=== PATIENT | male | born 1945 | race Caucasian/White ===

== ENCOUNTER 2019-01-10 09:23 | Outpatient (CLI) | payer MEDICARE, OTHER ==
[~2019-01-10] VITALS: Ht 185.4 cm; Wt 89.8 kg
[~2019-01-10 09:23] MED LIST: ACET325T53 PO; ALBU2.5V13 NEB; ALLA266C2 TP; CARV6.25 PO; Digoxin PO; LEVO750T21 PO; RIVA10TA PO; Simethicone PO
[2019-01-10] MEDS ORDERED: IOHEXOL-350 100 ML VIAL IV ONE (10:10)
[2019-01-10] MEDS ORDERED: IV NS 0.9% 250 ML IV ONE (10:10)
[2019-01-10] MEDS ORDERED: CT SWABBABLE VALVE TRANS SET 1 EA INFUS.SET MC ONE (10:10)
[2019-01-10] MEDS ORDERED: IV NS 0.9% 500 ML IV PRN (11:30)
[2019-01-10] MEDS ORDERED: NITROGLYCERIN 0.4 MG/TAB BOTTLE SL ONE (11:30)
[2019-01-10] MEDS ORDERED: METOPROLOL TARTRATE INJ 5 MG/5 ML AMPUL ONE ×3 (11:43→12:27)
[2019-01-10] MEDS: METOPROLOL TARTRATE INJ 5 MG/5 ML AMPUL IVP PRN ×8 (11:59→12:34)
[2019-01-10 13:10] VITALS: BP 130/65
--- NOTE | 2019-01-10 13:10 | NUR ---
received pt. from cat scanning.hep lock intact.skin warm and dry. no complaints offered.vs taken and stable.call [facility] within reach.refusing food.requests water. friend and transport at bedside.
--- NOTE | 2019-01-10 13:50 | NUR ---
just up to bathrm. to void.hep lock out.given dc instructions,friend at bedside.aware to follow up [facility] mule tender.taken to lobby via w/c accompanied by friend and director career services.
[2019-01-10 14:00] VITALS: BP 135/79
== END 2019-01-10 23:59 | disposition home or self-care (01) ==
LOC: CT 09:23
PROVIDERS: ATTEND Internal Medicine Interventional Cardiology
DX: I21.9 Acute myocardial infarction, unspecified (principal); J43.9 Emphysema, unspecified; I48.91 Unspecified atrial fibrillation; M47.814 Spondylosis without myelopathy or radiculopathy, thoracic region
CPT/HCPCS: 75574; J3490 ×3; J7050; Q9967

== ENCOUNTER 2019-03-01 05:17 | Day surgery (SDC) | payer MEDICARE, OTHER ==
[2019-03-01] VITALS (14 sets, daily range): BP systolic 112–173; BP diastolic 59–111
[~2019-03-01] VITALS: Ht 167.6 cm; Wt 97.5 kg
[2019-03-01] MEDS ORDERED: IODIXANOL 150 ML IV ONE (05:58)
[2019-03-01] MEDS ORDERED: LIDOCAINE HCL/PF 1% 30 ML SDV ONE (05:59)
[2019-03-01] MEDS ORDERED: NITROGLYCERIN ICAR 1,000 MCG/10 ML VIAL ICAR ONE (05:59)
[2019-03-01] MEDS ORDERED: VERAPAMIL HCL IV 5 MG/2 ML VIAL ONE (05:59)
[2019-03-01 06:02] LABS: BASOPHILS # (AUTO) 0.1 /CMM (0.0-0.2); BASOPHILS % (AUTO) 1.2 % (0.0-2.0); EOSINOPHILS % (AUTO) 2.6 % (0.0-6.0); HEMATOCRIT 39 % (39-51); HEMOGLOBIN 12.7 g/dL (13.5-17.5); LYMPHOCYTES # (AUTO) 1.3 /CMM (0.8-4.8); LYMPHOCYTES % (AUTO) 26.8 % (20.0-44.0); MEAN CORPUSCULAR HGB CONC 32 g/dl (31.0-36.0); MEAN CORPUSCULAR VOLUME 84 fL (80-96); MONOCYTES # (AUTO) 0.7 /CMM (0.1-1.30); MONOCYTES % (AUTO) 15.4 % (2.0-12.0); NEUTROPHILS # (AUTO) 2.6 /CMM (1.8-8.9); PLATELET COUNT (AUTO) 157 /CMM (150-450); RED BLOOD CELL COUNT(AUTO) 4.66 MIL/uL (4.5-6.0); WHITE BLOOD COUNT (AUTO) 4.8 K/uL (4.3-11.0)
[2019-03-01] MEDS ORDERED: IV SET PRIMARY PUMP SET 1 EA INFUS.SET MC ONE (06:02)
[2019-03-01] MEDS ORDERED: IV NS 0.9% 1,000 ML ONE (06:04)
[2019-03-01] MEDS ORDERED: ASPI-1169 PO (06:05)
[2019-03-01 06:06] LABS: CALCIUM, SERUM 8.8 mg/dL (8.5-10.1); CREATININE 1.3 mg/dL (0.6-1.3); POTASSIUM 3.9 mmol/L (3.5-5.1)
[2019-03-01] MEDS ORDERED: CARV12.52 PO (06:07)
[2019-03-01 06:12] LABS: ALBUMIN 3.4 g/dL (3.4-5.0); BILIRUBIN,TOTAL 0.7 mg/dL (0.2-1.0); TOTAL PROTEIN, SERUM 8.3 g/dL (6.4-8.2)
[2019-03-01] MEDS ORDERED: MIDAZOLAM HCL 2 MG/2ML VIAL ONE (06:21)
[2019-03-01] MEDS ORDERED: FENTANYL PF 100MCG/2ML AMPUL ONE (06:22)
[2019-03-01] MEDS ORDERED: HEPARIN SODIUM, PORCINE 1,000 UNIT/ML VIAL ONE (07:34)
[2019-03-01] MEDS ORDERED: IODIXANOL 320MG/ML 50 ML IV ONE (08:00)
--- NOTE | 2019-03-01 09:00 | NUR ---
received pt from lab support service tech, no interventions, CABG recommended, a/o x4, follows commands, A fib controlled, cardiac diet, urinates in urinal, TR band on, no bleeding noted, pulses palpable on all extremities, v/s stable, no pain, son at the bedside, CD ordered and the information papers given to the son.
[2019-03-01] MEDS ORDERED: CARVEDILOL 12.5 MG TABLET PO ONE (09:30)
[2019-03-01] MEDS ORDERED: DIGO125T PO (11:01)
[2019-03-01] MEDS ORDERED: APIX5TAB PO (11:02)
[2019-03-01 11:17] LABS: BAND % (MANUAL) 2 % (0.0-5.0); LYMPHOCYTES % (MANUAL) 22 % (16-48); MONOCYTES % (MANUAL) 17 % (0-11.0); NEUTROPHILS % (MANUAL) 59 (42-76)
--- NOTE | 2019-03-01 11:34 | NUR ---
pt is resting in the bed, a/o x4, A fib controlled, TR band off, no bleeding noted, pulses palpable, v/s stable, no pain, lunch ordered.
--- NOTE | 2019-03-01 12:54 | NUR ---
pt went home, accompanied by son, discharge instruction given and explained, pt verbalized understanding, v/s stable, no pain.
--- NOTE | 2019-03-01 13:36 | NUR ---
Social service consult requested by Dr. Sanchez for Advance Directive information. HEAD OF SALES AND MARKETING attempted to meet with the pt. this afternoon, however Pt was discharged earlier today.
== END 2019-03-01 16:00 | disposition home or self-care (01) ==
LOC: CATHLAB 05:17 → UNDOADMIN 09:20 → ICU 09:20 → UNDODISIN 12:30 → CATHLAB 16:00
PROVIDERS: ATTEND Internal Medicine Interventional Cardiology
DX: I25.110 Atherosclerotic heart disease of native coronary artery with unstable angina pectoris (principal); I48.91 Unspecified atrial fibrillation; I42.9 Cardiomyopathy, unspecified; J44.9 Chronic obstructive pulmonary disease, unspecified; Z79.899 Other long term (current) drug therapy; Z87.891 Personal history of nicotine dependence
CPT/HCPCS: 36415; 80053; 85025; 85610; 85730; 93005; 93458; 99152; 99153; C1887; J1644 ×2; J2250; J3010; J3490 ×2; Q9967; 93452; G0378

== ENCOUNTER 2023-01-18 10:51 | Inpatient (IN) | payer MEDICARE, OTHER ==
[~2023-01-18] VITALS: Ht 177.8 cm; Wt 88.0 kg
[~2023-01-18 10:51] MED LIST changes: -ACET325T53 PO; -ALBU2.5V13 NEB; -ALLA266C2 TP; +APIX5TAB PO; +ASPI-1169 PO; +CARV12.52 PO; -CARV6.25 PO; +DIGO125T PO; -Digoxin PO; -LEVO750T21 PO; -RIVA10TA PO; -Simethicone PO
[2023-01-18] MEDS ORDERED: IV NS 0.9% 1,000 ML BAG IV ONE (11:00)
[2023-01-18 11:30] LABS: HEMOGLOBIN 12.1 g/dL (13.5-17.5); MEAN CORPUSCULAR VOLUME 83 fL (80-96)
[2023-01-18 11:35] LABS: INR 1.26 (0.91-1.10); PARTIAL THROMBOPLASTIN TIME 31.3 SEC (24.3-34.3); PROTHROMBIN TIME 13.2 SECS (9.2-11.1)
[2023-01-18 11:39] LABS: CALCIUM, SERUM 8.6 mg/dL (8.5-10.1); CARBON DIOXIDE 24 mmol/L (21-32); CHLORIDE 101 mmol/L (98-107); CREATININE 1.6 mg/dL (0.6-1.3); GLUCOSE 190 mg/dL (74-106); POTASSIUM 3.7 mmol/L (3.5-5.1); SODIUM SERUM 133 mmol/L (136-145); UREA NITROGEN, BLOOD 22 mg/dL (7-18)
[2023-01-18 11:41] LABS: BASOPHILS % (AUTO) 0.7 % (0.0-2.0); EOSINOPHILS % (AUTO) 0.1 % (0.0-6.0); HEMATOCRIT 37 % (39-51); LYMPHOCYTES # (AUTO) 0.7 K/uL (0.8-4.8); LYMPHOCYTES % (AUTO) 17.3 % (20.0-44.0); MEAN CORPUSCULAR HEMOGLOBIN 27 PG (26.0-33.0); MEAN CORPUSCULAR HGB CONC 33 g/dl (31.0-36.0); MONOCYTES # (AUTO) 0.8 K/uL (0.1-1.30); NEUTROPHILS # (AUTO) 2.5 K/uL (1.8-8.9); NEUTROPHILS % (AUTO) 62.9 % (43.0-81.0); PLATELET COUNT (AUTO) 121 K/uL (150-450); RED BLOOD CELL COUNT(AUTO) 4.43 MIL/uL (4.5-6.0)
[2023-01-18 11:46] LABS: ALANINE AMINOTRANSFERASE 18 U/L (12-78); ALBUMIN 3.4 g/dL (3.4-5.0); ALKALINE PHOSPHATASE 46 U/L (46-116); ASPARTATE AMINOTRANSFERASE 15 U/L (15-37); BILIRUBIN,DIRECT 0.2 mg/dL (0.0-0.2); BILIRUBIN,TOTAL 0.6 mg/dL (0.2-1.0); TOTAL PROTEIN, SERUM 7.8 g/dL (6.4-8.2)
[2023-01-18] MEDS ORDERED: CT SWABBABLE VALVE TRANS SET 1 EA INFUS.SET MC ONE (11:54)
[2023-01-18] MEDS ORDERED: IV NS 0.9% 250 ML IV ONE (11:54)
[2023-01-18] MEDS ORDERED: IOHEXOL-350 100 ML VIAL IV ONE (11:54)
[2023-01-18] MEDS ORDERED: CARV25TA PO (12:06)
[2023-01-18] MEDS ORDERED: CLOP75TA15 PO (12:06)
[2023-01-18] MEDS ORDERED: FOLI0.8T7 PO (12:06)
[2023-01-18] MEDS ORDERED: ATOR20TA PO (12:06)
[2023-01-18] MEDS ORDERED: CHOL500062 PO (12:06)
[2023-01-18 13:32] VITALS: BP 131/78; TEMP 98.4; O2SAT 97
[2023-01-18] MEDS ORDERED: MAGNESIUM HYDROXIDE 30 ML UDC PO PRN (15:00)
[2023-01-18] MEDS ORDERED: ONDANSETRON HCL/PF 4 MG/2 ML VIAL IVP PRN (15:00)
[2023-01-18] MEDS ORDERED: ACETAMINOPHEN 325 MG TABLET PO PRN (15:00)
[2023-01-18] MEDS ORDERED: MAG HYDROX/AL HYDROX/SIMETH 30 ML UDC PO PRN (15:00)
[2023-01-18] MEDS ORDERED: Z GUARD REMEDY 4 OZ OINT TP PRN (15:00)
[2023-01-18] MEDS ORDERED: IV NS 0.9% 1,000 ML IV PRN (15:00)
[2023-01-18] MEDS ORDERED: CARVEDILOL 12.5 MG TABLET PO SCH (17:00)
[2023-01-18] MEDS ORDERED: APIXABAN 5 MG TABLET PO SCH (17:00)
[2023-01-19] MEDS ORDERED: FOLIC ACID PO SCH (09:00)
[2023-01-19] MEDS ORDERED: ATORVASTATIN 10 MG TABLET PO SCH (09:00)
[2023-01-19] MEDS ORDERED: CHOLECALCIFEROL 1,000 UNIT TABLET (VIT D3) PO SCH (09:00)
[2023-01-19] MEDS ORDERED: CLOPIDOGREL BISULFATE 75 MG TABLET PO SCH (09:00)
[2023-01-19] MEDS ORDERED: DIGOXIN 0.125 MG TABLET PO SCH (09:00)
[2023-01-19] MEDS ORDERED: [UNRECOGNIZED DRUG - OTHER] PO SCH (09:00)
[2023-01-19] MEDS ORDERED: VITAMIN B COMP W C PO SCH (09:00)
== END 2023-01-18 13:41 | disposition left against medical advice (07) | DRG 308 ==
LOC: ER 10:53 → TELE 13:28
PROVIDERS: ADMIT Internal Medicine; ATTEND Internal Medicine
DX: I49.9 Cardiac arrhythmia, unspecified (principal); N17.0 Acute kidney failure with tubular necrosis; I48.20 Chronic atrial fibrillation, unspecified; D61.818 Other pancytopenia; I13.0 Hypertensive heart and chronic kidney disease with heart failure and stage 1 through stage 4 chronic kidney disease, or unspecified chronic kidney disease; F17.210 Nicotine dependence, cigarettes, uncomplicated; N18.9 Chronic kidney disease, unspecified; Z79.01 Long term (current) use of anticoagulants; I71.9 Aortic aneurysm of unspecified site, without rupture; I50.9 Heart failure, unspecified
CPT/HCPCS: 36415; 70450-TC; 70496-TC; 70498-TC; 71045-TC; 80048-TC; 80076-TC; 82962-TC; 83880; 84484-TC; 85025-TC; 85730-TC; G0378; J7050; Q9967